=== PATIENT | female | born 1975 | race Caucasian/White ===

== ENCOUNTER → 2017-03-27 14:28 | Outpatient (CLI) | payer BC, SELFPAY ==
[2017-03-27 16:08] LABS: Absolute Lymphocyte Count 1.96 X10^3/ul (0.83-4.51); Absolute Neutrophil Count 4.2 X10^3/uL (2.0-7.7); Basophil# 0.03 X10^3/uL; Basophil% 0.4 % (0-1); Eosinophil# 0.05 X10^3/uL; Eosinophils% 0.7 % (0-5); Hematocrit 41.1 % (37-47); Hemoglobin 13.9 g/dl (12.0-15.0); Lymphocyte # 1.96 X10^3/ul (4.0); Lymphocyte % 29.3 % (19-41); Mean Corp Hgb Conc 33.8 g/gl (32-36); Mean Corpuscular Hgb 31.6 pg (27.0-32.0); Mean Corpuscular Volume 93.4 fL (81-99); Mean Platelet Vol. 11.4 fl (6.2-12.0); Neutrophil # 4.24 X10^3/uL (2.7-7.7); Neutrophil % 63.5 % (47-70); Platelet Count 308 K/mm3 (150-450); RBC Distribution Width CV 12.4 % (11.6-14.6); RBC Distribution Width SD 41.3 fl (35.1-43.9); White Blood Count 6.7 K/mm3 (4.4-11.0)
[2017-03-27 16:11] LABS: POSITIVE COUNT NO; POSITIVE DIFFERENTIAL NO; POSITIVE MORPHOLOGY NO
[2017-03-27 16:30] LABS: Color, Urine Yellow (Yellow); Glucose, Dipstick Normal (Normal); Ketone-Dipstick 5 mg/dl (Negative); Leukocyte Esterase-Dipstick 25 /ul (Negative); Nitrite-Dipstick Negative (Negative); Occult Blood-Urine 10 /ul (Negative); Protein-Dipstick 30 mg/dl (Negative); Specific Gravity, Urine 1.025 (1.002-1.030); Urine Bilirubin Dipstick Negative (Negative); Urine Clarity Sl. Cloudy (Clear); Urine Urobilinogen 4 mg/dl (Normal)
[2017-03-27 16:33] LABS: Erythrocyte Sedimentation Rate 2 mm/hr (0-20)
[2017-03-27 17:59] LABS: ALB/GLOB Ratio 1.3 RATIO (0.9-2.4); AST(SGOT) 10 U/L (15-37); Alanine Aminotransfer ALT/SGPT 17 U/L (13-56); Albumin, Serum 3.9 g/dL (3.2-5.0); Alkaline Phosphatase 63 U/L (45-117); Anion Gap 7 (5-15); BUN 12 mg/dL (7-18); BUN/Creat Ratio 14.5 RATIO (10-20); CRP < 2.90 mg/L (0.0-3.0); Calcium,Total 8.4 mg/dL (8.5-10.1); Chloride 104 mmol/L (98-107); Creatinine, Serum 0.83 mg/dL (0.55-1.02); EST Glomerular Filtration Rate 81 mL/min (>60); Est Glom Filt Rate - Afr Amer 98 mL/min (>60); Globulin 2.9 g/dL (2.2-4.2); Glucose 90 mg/dL (74-106); Protein, Total 6.8 g/dL (6.4-8.2); Sodium Level 140 mmol/L (136-145); Thyroid Stim Hormone (TSH) 0.99 uIU/mL (0.358-3.74)
== END ==
PROVIDERS: Family Provider Internal Medicine; PCP Internal Medicine; Visit Provider Internal Medicine
DX: R63.4 Abnormal weight loss (principal)
CPT/HCPCS: 36415; 80053; 81002; 84443; 85025; 85652; 86140

== ENCOUNTER → 2017-04-06 09:27 | Outpatient (CLI) | payer BC, SELFPAY ==
--- NOTE | 2017-04-06 09:31 | US_ITS ---
PROCEDURES: ULTRASOUND AORTA REASON FOR EXAM: Female, 42 years old. Palpable abdominal aorta. TECHNIQUE: Ultrasound evaluation of the aorta was performed with real-time and static olivarez-scale imaging. COMPARISON: None. FINDINGS: There is no elongation or tortuosity of the abdominal aorta. Aorta measures: Proximal 2.2; cm. Middle 1.3 cm. Distal 1.1 cm. Aorta measure transversely: Proximal 2.2 cm. Middle 1.3 cm. Distal 1.1 cm. Right iliac artery measures: 1.0 cm. Right iliac artery measure transversely: 0.9 cm. Left iliac artery measures: 1.0 cm. Left iliac artery measure transversely: 0.6 cm. There is no demonstrated aneurysm.. US/Aorta IMPRESSION: Normal abdominal aorta. Electronically Signed: Kristopher Cuadra MD at 14:35 EST Tel [phone], Service support ,
== END ==
PROVIDERS: Family Provider Internal Medicine; PCP Internal Medicine; Visit Provider Internal Medicine
DX: R09.89 Other specified symptoms and signs involving the circulatory and respiratory systems (principal)
CPT/HCPCS: 76775

== ENCOUNTER → 2018-02-18 12:56 | Outpatient (CLI) | payer BC, SELFPAY ==
--- NOTE | 2018-02-18 12:59 | ECHOD_ITS ---
Reason For Study: chest pain Procedure This was a 2D Doppler, Color Flow transthoracic echocardiogram. Exam performed in department. Left Ventricle Normal LV size. The estimated ejection fraction is 50 %. Normal diastology for age. No regional wall motion abnormalities noted. Right Ventricle Normal RV size. Normal systolic function. Atria Normal left atrium. Normal right atrium. Mitral Valve Normal mitral valve. Mild (1+) eccentric mitral valve insufficiency. Tricuspid Valve Normal tricuspid valve. Mild tricuspid valve insufficiency. Pulmonary artery systolic pressure is 30 mmHg. Aortic Valve Normal aortic valve. Trisinus/trileaflet aortic valve. Pulmonic Valve The pulmonic valve is not well visualized. Great Vessels Normal aortic root. The pulmonary artery is normal size. Normal inferior vena cava. Pericardium/Pleural No pericardial effusion. MMode/2D Measurements & Calculations LVIDd: 4.2 cm IVSd: 0.63 cm Ao root diam: 2.8 cm LVIDs: 3.3 cm LVPWd: 0.59 cm RVDd: 2.4 cm FS: 21.8 % LAV(MOD-bp): 31.1 ml LA A4 area: 10.2 cm2 LA dimension(2D): 2.7 cm LAV(MOD-bp) Indexed: 21.0 ml/m2 LAV(MOD-sp2): 38.0 ml LAV(MOD-sp4): 24.4 ml RA A4 area: 10.4 cm2 Doppler Measurements & Calculations MV E max tyrone: 80.7 cm/sec Lat Peak E' Tyrone: 13.3 cm/sec Med Peak E' Tyrone: 12.5 cm/sec MV A max tyrone: 74.5 cm/sec E/E' lat: 6.1 E/E' med: 6.5 MV E/A: 1.1 Ao V2 max: 146.9 cm/sec LV V1 max: 89.8 cm/sec PA V2 max: 81.9 cm/sec Ao max P.7 mmHg LV V1 max P.2 mmHg TR max tyrone: 252.2 cm/sec TR max P.5 mmHg Interpretation Summary Normal LV size. The estimated ejection fraction is 50 %. Normal diastology for age. Mild tricuspid valve insufficiency. Pulmonary artery systolic pressure is 30 mmHg. Ordering Physician: Skyla Cobb Referring Physician: Skyla Cobb Performed By: Zakia Hollis, ALISSA, RVT
== END ==
PROVIDERS: Family Provider Internal Medicine; PCP Internal Medicine; Referring Provider Internal Medicine; Visit Provider Internal Medicine
DX: R07.9 Chest pain, unspecified (principal)
CPT/HCPCS: 93306

== ENCOUNTER 2018-08-26 06:01 | Day surgery (SDC) | payer BC, SELFPAY ==
--- NOTE | 2018-08-16 16:45 | PCM.HP.BLA ---
History and Physical Date of Admission: 08/16/18 Althea Griffith Physician LICENSED CHEMICAL SPRAY TECHNICIAN H&P Signed Encounter Date: 08/16/2018 Expand All Collapse All Hide copied text Lily for details Teresa Sousa is a 43 year old female who presents abnormal uterine bleeding, endometrial polyp, uterine anomaly. Patient still with irregular bleeding. Patient is scheduled for hysteroscopy, D&C, polypectomy using the symphion device. Patient would like to proceed at this time. Patient denies any chest pain, shortness of breath, dizziness or other concerns at this time. ? PAST?MEDICAL?HISTORY PAST MEDICAL HISTORY Diagnosis Date ? 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 PAST?SURGICAL?HISTORY PAST SURGICAL HISTORY Procedure Laterality Date ? PAST SURGICAL HISTORY OF ? 2001 ? FOREIGN OBJECT REMOVED FROM THROAT ? FAMILY?HISTORY FAMILY HISTORY Problem Relation Age of Onset ? Pancreatic Cancer Father ? ? Breast Cancer Maternal Grandmother ? ? Heart Paternal Grandmother ? ? Heart Maternal Uncle ? ? Heart Maternal Uncle ? ? other (throat cancer) Paternal Uncle ? ? SOCIAL?HISTORY Social History Socioeconomic History Marital status: Spouse name: SHOSHANA Number of children: 2 Years of education: 12 Highest education level: Not on file Social Needs Financial resource strain: Not on file Food insecurity - worry: Not on file Food insecurity - inability: Not on file Transportation needs - medical: Not on file Transportation needs - non-medical: Not on file Occupational History Occupation: HOMEMAKER Tobacco Use Smoking status: Current Every Day Smoker Packs/day: 0.30 Years: 14.00 Pack years: 4.2 Types: Cigarettes Smokeless tobacco: Never Used Substance and Sexual Activity Alcohol use: Yes Comment: RARELY BUT NOT WHILE Drug use: No Sexual activity: Yes Partners: Male control/protection: Condom Other Topics Concerns: Not on file Social History Narrative Not on file ? CURRENT?MEDICATIONS ? Current Outpatient Medications: ibuprofen (ADVIL) 200 mg ORAL tablet Take 200 mg by mouth every 6 hours as needed. ibuprofen (MOTRIN) 600 mg tablet Take 1 tablet by mouth every 6 hours as needed for Pain. FOR PAIN. PNV w/o Calcium-Iron Fum-FA 29-1 mg ORAL Chew Take 1 tablet by mouth once daily. (Patient not taking: Reported on 06/07/2018 ) ? No current facility-administered medications for this visit. Allergies As of Date: 08/16/2018 Allergen Noted Reaction HYDROCODONE-ACETAMINOPHEN 05/03/2018 Intolerance KEFLEX [CEPHALEXIN] 10/01/2007 Swelling LEVAQUIN [LEVOFLOXACIN] 05/03/2018 Other: See Comments ? Fully Assessed 08/16/2018 ? ? REVIEW OF SYSTEMS Abdomen: no pain Bladder: no dysuria .. Expanded ROS: GENERAL: Negative for fever Allergies and current medication updated:Yes ? EXAM: BP 92/52 Ht 5' 6 (1.68m) Wt 101 lb (45.8kg) LMP 08/14/2018 BMI 16.31 kg/(m^2). ? GENERAL: pleasant, female in no apparent distress HEENT: Normocephalic and atraumatic NECK: full range of motion DERMATOLOGY: Normal, without lesions, non-icteric and non-hirsute CARDIAC: regular rate and rhythm CHEST: Clear to auscultation Normal inspiratory effort NEURO: alert and oriented x3,exam grossly non-focal EXTREMITIES: normal ? ASSESSMENT AND PLAN: Encounter Diagnosis ? ? ICD-10-CM ? 1. Abnormal uterine bleeding (AUB) N93.9 ? 2. 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 3. Endometrial polyp N84.0 ? ? 4. Pt has been counseled on risks/benefits and alternatives of surgery including but not limited to anesthesia, bleeding, infection, injury to pelvic structures including bowel, bladder, ureters and vessels. Pt wishes to proceed with surgery at this time. 5. Consent signed today. Motrin given for postoperative discomfort. ? Althea Holbrook MD ? ? ?
[2018-08-26] VITALS (7 sets, daily range): BP systolic 105–120; BP diastolic 70–74; PULSE 62–81; RESP 16; TEMP 36.5–36.7; O2SAT 97–100; BMI 16.1
--- NOTE | 2018-08-26 | EMB_PTH ---
PATIENT: GALINA FLORES LOC: [facility] [place] U#:[id number] AGE/SX: 43/F ROOM: RE08/26/[address]: Dr. Althea Holbrook, MDDOB: 1975 BED: DIS: 08/26/2018 SPEC #: [id number] RECD: 08/26/18 14:30 STATUS: DARÍO THEA #: [id number] ARSH: 08/26/18 00:[address]: Althea Holbrook DEPT: SURGICAL PATHOLOGY RECD BY: Eddie Ledezma ENTERED: 08/26/18 14:30 SP TYPE: ENDOM BX/C MARIA ESTHER DR: Dr. Skyla Cobb, Tissues: Endometrium, NOS Procedures: Surgery Specimen Level IV HEADER OPERATION: Hysteroscopy, D & C Symphion, polypectomy PRE-OP DIAGNOSIS: Abnormal uterine bleeding, endometrial polyp, uterine anomaly TISSUE SUBMITTED: Endometrial curettings MICROSCOPIC DIAGNOSIS Endometrial curettings: Disordered proliferative endometrium. Fragments of benign ecto- and endocervical epithelium. Fragments of myometrium. See comment. MECHELLE:gabby 08/27/18 COMMENT A few of the fragments have polypoid appearance and may represent fragments of polyp. Case has been reviewed in consultation with Dr. Tejeda who concurs with the above diagnosis. IDC:AM MICROSCOPIC DESCRIPTION Slides are reviewed. GROSS DESCRIPTION Received in fixative is one container labeled with the patient's name and designated endometrial curettings. The specimen consists of multiple fragments of hemorrhagic soft tissue that in aggregate measure 5 x 3 x 0.3 cm. The entire specimen is submitted in two cassettes. / MECHELLE:gabby 08/26/18 TC:5 CPT: 92910
[2018-08-26 06:33] LABS: Internal QC Validated? YES +Cl - CLEAR BKGD; Pregnancy, Urine Negative Negative
[2018-08-26 06:51] LABS: Hematocrit 41.8 % (37-47); Hemoglobin 14.2 g/dL (12.0-15.0); Mean Corpuscular Hgb 31.9 pg (27.0-32.0); Mean Corpuscular Volume 93.9 fL (81-99); Mean Platelet Vol. 10.8 fl (6.2-12.0); Platelet Count 264 K/mm3 (150-450); RBC Distribution Width CV 12.1 % (11.6-14.6); RBC Distribution Width SD 42.1 fl (35.1-43.9); Red Blood Count 4.45 M/mm3 (4.2-5.4)
--- NOTE | 2018-08-26 08:04 | OP.PCM_ITS ---
Report of Operation Date of Procedure: 08/26/18 Pre-Operative Diagnosis: AUB, endometrial polyp, uterine anomaly Post-Operative Diagnosis: same, didelphic uterus Surgery/Procedure Performed:: hysteroscopy, D&C, Polypectomy Description of Surgical Findings:: 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 There are 2 cervical is. The right uterus with moderate amount of endometrial tissue could not visualize the tubal ostia. Sounded to 8 cm. The left uterus with polypoid-like tissue. Moderate amount of endometrial tissue could not visualize the tubal ostia. This cavity also sounded to approximately 8 cm Type of Anesthesia:: MAC Specimen's removed: endometrial curettings Drains: none Estimated Blood Loss (mL): 5 Fluids Replaced: 700 Description of Procedure: Informed consent was obtained the patient was taken the operating room she was placed in supine position. She was given anesthesia. She was then placed in the [facility] where she was prepped and draped in the normal sterile fashion. bladder drained- 10cc urine. At this time the weighted speculum was placed in the posterior fornix of vagina. Single-tooth tenaculum was used to gently grasp the anterior lip the cervix. This time to cervical eyes were appreciated. On the patient's left cervical OS the uterine cavity was sounded to approximately 8 cm. On the right visit sounded to approximately 8 cm as well. Both were retroverted nature. Gentle dilatation was performed on both cervical eyes once adequate dilatation of the cervix was achieved the hysteroscope using normal saline as a distention medium was placed. abundant Endometrial tissue and polypoid-like tissue was appreciated on the left uterus. The resector device was used to remove the polypoid-like tissue. Next a sharp curettage was performed on both uterus small amount of tissue from the right. Large amount of endometrial polypoid-like tissue from the left was removed. Hysteroscope was reinserted cavity was intact and it appeared that the polypoid- like tissue was removed successfully. At This time hysteroscopy was complete. Endometrial curettings will be sent to pathology for evaluation. Gentle sweep performed is negative. Uncomplicated case anticipating normal postoperative course Grafts/Implants Used: none - Complications none - Admit VTE Documentation VTE Present on Admission: Yes VTE Mechan Device Prophylaxis: SCD's VTE Pharm Prophylaxis ordered?: No
--- NOTE | 2018-08-26 08:11 | DCINST_ITS ---
Discharge Diet: No Restrictions Discharge Activity: Return to Normal Activity, May Shower, May Take a Tub Bath - in 2 weeks. Allergies/Adverse Reactions: Allergies cephalexin [From Keflex] Allergy (Verified 08/19/18 11:22) Swelling hydrocodone Allergy (Verified 08/19/18 11:22) Other increased heart rate levofloxacin [From Levaquin] Allergy (Verified 08/19/18 11:22) Other increased heartrate, dizzy, double vision Medications to take at Discharge NK 08/19/18 Primary Care Physician: Skyla Cobb DO [Primary Care Provider] - Test Results: Test results from this visit will be discussed in further detail at your follow- up appointment, if applicable.
[2018-08-26] MEDS: oxyCODONE 5 MG Tablet PO (08:53)
[2018-08-26] MEDS: Acetaminophen 325 MG Tablet PO (08:53)
== END 2018-08-26 09:36 | disposition home or self-care (01) ==
LOC: SDC 06:03 → AC 06:04
PROVIDERS: Family Provider Internal Medicine; PCP Internal Medicine; Referring Provider Obstetrics & Gynecology; Visit Provider Obstetrics & Gynecology
PROC: 0UB98ZZ Excision of Uterus, Via Natural or Artificial Opening Endoscopic (ICD-10-PCS; CPT 58558; principal; 2018-08-26 07:15)
DX: N84.0 Polyp of corpus uteri (principal); N93.9 Abnormal uterine and vaginal bleeding, unspecified; Q51.20 Other doubling of uterus, unspecified; F17.210 Nicotine dependence, cigarettes, uncomplicated
CPT/HCPCS: 00952; 58558; 36415; 81025; 85027; 88305; J7120; J2405

== ENCOUNTER 2021-02-14 11:15 | Outpatient (CLI) | payer BC, SELFPAY | END 2021-02-14 23:59 | disposition short-term general hospital (02) | LOC: PSN 11:19 | PROVIDERS: PCP Internal Medicine; Referring Provider Internal Medicine; Visit Provider Internal Medicine | DX: R00.2 Palpitations (principal) | CPT/HCPCS: 93225; 93226 ==

== ENCOUNTER 2023-03-21 16:28 | Emergency (ER) | payer MEDICAID, SELFPAY ==
[2023-03-21 16:29] VITALS: BP 120/79; PULSE 94; RESP 18; TEMP 36.4; O2SAT 94
--- NOTE | 2023-03-21 16:35 | RAD_ITS ---
INDICATION: FALL EXAMINATION/TECHNIQUE: X-RAY - RIGHT XR Elbow Min 3 Views COMPARISON: No relevant prior comparison study available FINDINGS: SOFT TISSUES: No soft tissue swelling or gas. No radiopaque foreign body. BONES/JOINTS: There is elevation of the anterior fat pad. Acute nondisplaced fracture of the proximal radial head. Normal alignment. Preservation of the joint space. No sclerotic or destructive changes observed. RAD/Elbow min 3 Views IMPRESSION: Acute nondisplaced fracture of the proximal radial head. Electronically Signed: Antonio Dunbar MD at 16:51 EST ,
--- NOTE | 2023-03-21 18:14 | EX.ED.UPPERE ---
HPI <JUANI Mora - Last Filed: 03/21/23 18:21> History of Present Illness Chief Complaint: Upper Extremity Injury Narrative Narrative: Patient is a 48-year-old female with no significant medical history presents to the emerged department with complaints of right elbow pain. 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 She had pain in her elbow and his for evaluation. She denies any head or neck injury. PFSH <JUANI Mora - Last Filed: 03/21/23 18:21> PFS Medical History (Updated 03/21/23 @ 18:18 by JUANI Mora) Anemia Back pain Chest pain Fatigue Limb weakness SOB (shortness of breath) Home Medications azithromycin 250 mg tablet (Zithromax Z-Miller) See Rx Instructions PO .COMPLEX #6 tabs 04/22/19 [Rx Last Taken Unknown] oxycodone-acetaminophen 5 mg-325 mg tablet (Percocet) 1 tab PO Q8H PRN pain 3 days #10 tabs 03/21/23 [Rx Last Taken Unknown] Allergy/AdvReac Type Severity Reaction Status Date / Time cephalexin [From Keflex] Allergy Swelling Verified 03/21/23 16:29 hydrocodone Allergy Other Verified 03/21/23 16:29 levofloxacin [From Levaquin] Allergy Other Verified 03/21/23 16:29 Family History (Updated 04/22/19 @ 18:10 by Isabella Reyes) Other Aneurysm Breast cancer CVA (cerebral vascular accident) Cancer Heart disease Myocardial infarction Surgical History (Updated 09/07/21 @ 07:58 by Neyda Corona) plastic removed from throat Social History (Updated 04/22/19 @ 18:17 by Lachelle BELLO, PA) Smoking Status: Current every day smoker tobacco type: cigarettes alcohol intake: current alcohol intake frequency: other Alcohol type: beer ROS <JUANI Mora - Last Filed: 03/21/23 18:21> ROS ED ROS Narrative Constitutional: No fever, no chills. HEENT: No sore throat. No neck pain. No loss of vision. No rhinorrhea. Cardiovascular: No chest pain. No palpitations. No pedal edema. Respiratory: No cough, no shortness of breath. Abdominal: No abdominal pain. No nausea. No vomiting. Genitourinary: No dysuria. No hematuria. Musculoskeletal: No myalgias. No arthralgias. Positive for right elbow pain Neurologic: No headaches. No dizziness. No lightheadedness. Skin: No rash. No change in color. Psychiatric: No depression. No anxiety. EXAM <JUANI Mora - Last Filed: 03/21/23 18:21> Physical Exam Narrative Exam Narrative: Afebrile. Vital signs noted. HEENT: Normocephalic. Atraumatic. PERRL, EOMI. Neck soft and supple. No point tenderness or step off. Cardiovascular: Regular rate and rhythm. No murmurs, rubs, or gallops appreciated. Respiratory: No tachypnea. Lungs clear to auscultation bilaterally. Gastrointestinal: Abdomen soft, nontender, with normoactive bowel sounds. No rebound or guarding. Neurological: Awake. Alert. Nonfocal, nonlateralizing. Skin: No rash. Normal color. No pallor. Musculoskeletal: No pedal edema. Patient has some pain to the proximal radial area pain with supination and pronation. Flexing and extending does cause discomfort. No numbness or tingling, equal movement of the digits, +2 radial pulse. Const Vital Signs: 03/21/23 16:29 Temperature 97.5 F L Temperature Source Temporal Pulse Rate 94 Respiratory Rate 18 Blood Pressure 120/79 Blood Pressure Mean 92 Pulse Ox 94 Oxygen Delivery Method Room Air [facility] <JUANI Mora - Last Filed: 03/21/23 18:21> [facility] Radiography Diagnostic Testing: Clinical Impression(s) from Imaging Studies Elbow X-Ray 03/21/23 16:35 IMPRESSION: Acute nondisplaced fracture of the proximal radial head. Electronically Signed: Antonio Dunbar MD at 16:51 EST , Treatment and Re-Evaluation Narrative: Patient appears to be in no obvious distress, vital signs are stable. Presenting to the emergency department with complaints of right elbow pain after mechanical fall. Differential diagnosis include elbow strain, elbow contusion, elbow fracture. Patient will receive 3 views of the right elbow. The radiology exams ordered for this patient will be read by the emergency department attending. From these reads a plan of care will be put into place. Patient's x-ray showed acute nondisplaced fracture of the proximal radial head. Patiently placed in a sling, she will follow-up with orthopedics. Patient will be given a prescription for oxycodone, she will also be given instructions to take ibuprofen. She will ice. She verbally understands the importance of follow-up. She currently does not need anything for work. Patient stable for discharge. <Dr. Juan Sapp MD - Last Filed: 03/21/23 20:05> [facility] MDM Narrative Medical decision making narrative: I have personally performed a face to face assessment of the patient and have reviewed the DAVIS Note. I performed a substantive portion of the visit including all aspects of the following. My nair findings include: History: Patient tripped and fell on outstretched hand has right elbow pain. No other injury. Exam: She does have some tenderness in the lateral posterior aspect of the right elbow. She can move it but it is painful. No distal numbness tingling. No gross deformity. Medical Decision Making: My interpretation of her three-view x-ray of the right elbow shows a minimally displaced fracture of portion of the radial head. I think this can be treated with sling rest and early motion and repeat x-ray. Discharge Plan Triage Chief Complaint: Upper Extremity Injury ED Midlevel Provider: Senthil Canada ED Provider: Jaun Sapp Dx/Rx/DC Orders Clinical Impression: Elbow fracture, right, Fall Instructions: ED Elbow Fracture Prescriptions: New oxycodone-acetaminophen [Percocet] 5-325 mg tablet 1 tab PO Q8H PRN (Reason: pain) 3 Days Qty: 10 0RF No Action azithromycin [Zithromax Z-Miller] 250 mg tablet See Rx Instructions PO .COMPLEX Qty: 6 0RF Rx Instructions: take 500 mg today (day 1), then 250 mg for 4 days (days 2-5) PO Primary Care Provider: Skyla Cobb Referrals: Skyla Cobb DO [Primary Care Provider] - Zay Lentz DO [Med Staff - Active Staff] - Activity Restrictions/Additional Instructions: You must wear your sling, you need to follow-up with orthopedics Disposition Disposition: Home, Self Care Discharge Date/Time: 03/21/23 18:50
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
--- OUTSIDE RECORDS SUMMARY | 2023-03-21 18:49 | XMS RPT_ITS | CCD ---
Author Name Unknown Address [address] [place] [address] Organization [facility] Care Team Providers Care Car Park Attendant Name Role Phone Jordyn, Skyla Unavailable Gravius, Citlaly Unavailable Unavailable Slarb, Saundra Unavailable Unavailable Ciesa, Daniela Unavailable Yehuda, Leyda Unavailable Unavailable Messenger, Denise Unavailable Unavailable Unavailable Unavailable Jordyn, Skyla Unavailable Unavailable Jordyn, Skyla Unavailable Unavailable Jordyn, Skyla Unavailable Unavailable Jordyn, Skyla Unavailable Messenger, Denise Unavailable Unavailable Slarb, Saundra Unavailable Unavailable Gravius, Citlaly Unavailable Unavailable Yehuda, Leyda Unavailable Unavailable Unavailable Unavailable Sybil Treadwell Unavailable Unavailable Gravius, Citlaly Unavailable Unavailable Messenger, Denise Unavailable Unavailable Jordyn DO, Skyla Unavailable Meir INDUSTRIAL TRAINER, Sherrie Unavailable Unavailable Slarb INDUSTRIAL TRAINER, Saundra Unavailable Unavailable Gravius BUSINESS OBJECTS ARCHITECT, Citlaly Unavailable Unavailable Sybil Treadwell RN Unavailable Unavailable Yehuda, Leyda Unavailable Unavailable Messenger RN, Denise Unavailable Unavailable Unavailable Unavailable Yehuda AGUILARNMassimo Unavailable Unavailable Ciesa HYDRAULIC AND PLUMBING INSTALLER, Daniela Unavailable Allergies Allergy Classification Reported Allergen(s) Allergy Type Date of Onset Reaction(s) Facility (11 sources) acetaminophen / HYDROcodone; Translations: [Hydrocodone-Acet aminophen *ANALGESICS - OPIOID*] Drug Allergy [facility] Work Phone: (11 sources) cephalexin; Translations: [KEFLEX, 250MG (Oral Capsule)] Drug Allergy [facility] Work Phone: Medications Completed/Discontinued Medications Medication Drug Class(es) Dates Sig (Normalized) Sig (Original) azithromycin 250 mg oral tablet (11 sources) Macrolide Antimicrobial Start: 12-29-2008 End: 03-18-2010 take 1 tablet by mouth once daily ZITHROMAX Z-ROSY, 250MG (Oral Tablet) tad Tablet Daily for 0 days Quantity: 2 {Tablet} Refills: 0 Ordered: 18-Mar-2010 Denise Pires RN Start : 29-Dec-2008 End : 18-Mar-2010 Inactive Comments: TAD Problems Active Problems Problem Classification Problem Date Documented Da te Episodic/Chronic Abdominal pain (20 sources) Epigastric pain; Translations: [Epigastric pain] Resolved: 08-10-2019 12-25-2017 Episodic Allergic reactions (20 sources) Acute contact dermatitis; Translations: [Acute contact dermatitis] 12-25-2017 Episodic Anxiety disorders (20 sources) Acute stress disorder; Translations: [Anxiety] 12-25-2017 Chronic Past or Other Problems Problem Classification Problem Date Documented Da te Episodic/Chronic Immunizations and screening for infectious disease (19 sources) Need for prophylactic vaccination and inoculation against diphtheria-tetanus- pertussis, combined [DTP] [DTaP]; Translations: [Encounter for screening for respiratory tuberculosis] Resolved: 03-17-2014 03-17-2014 Episodic Inflammation, infection of eye (11 sources) Contact dermatitis of eyelid; Translations: [Contact dermatitis of right eyelid] Resolved: 08-10-2019 12-25-2017 Episodic Other nutritional; endocrine; and metabolic disorders (11 sources) Underweight; Translations: [SYMPTOMS CONCERNING NUTRITION, METABOLISM, AND DEVELOPMENT, ABNORMAL UNDERWEIGHT] Resolved: 07-26-2008 03-15-2014 Episodic Results Test Name Value Interpretation Reference Range Facil ity Vital Signs Date Time Vital Sign Value Performing Clinician Facility 03-13-2021 13:07-0500 Body height 165.1 cm Massimo Blackman LPN [facility]; [facility] Work Phone: 03-13-2021 13:07-0500 Body mass index (BMI) [Ratio] 17.18 kg/m2 Massimo Blackman LPN [facility]; [facility] Work Phone: 03-13-2021 13:07-0500 Body surface area Derived from formula 1.49 m2 Massimo Blackman LPN [facility]; [facility] Work Phone: 03-13-2021 13:07-0500 Body weight 46.83 kg Massimo Blackman LPN [facility]; [facility] Work Phone: 12-26-2020 13:40-0500 Body height 165.1 cm Sherrie Worley MANDY [facility]; [facility] Work Phone: 12-26-2020 13:40-0500 Body mass index (BMI) [Ratio] 17.18 kg/m2 Sherrie Worley MANDY [facility]; [facility] Work Phone: 12-26-2020 13:40-0500 Body surface area Derived from formula 1.49 m2 Sherrie Worley MANDY [facility]; [facility] Work Phone: 12-26-2020 13:40-0500 Body temperature 97.3 [degF] Sherrie Worley MANDY [facility]; [facility] Work Phone: Encounters Encounter Date Encounter Type Care Provider Facility Start: 03-13-2021 End: 03-13-2021 Office outpatient visit 15 minutes Skyla Jordyn DO Work Phone: [facility] Start: 03-13-2021 Review Skyla Fearo n DO Work Phone: [facility] Start: 03-08-2021 End: 03-08-2021 Office outpatient visit 5 minutes Skyla Jordyn DO Work Phone: [facility] Start: 02-05-2021 End: 02-06-2021 Office outpatient visit 5 minutes Skyla Jordyn DO Work Phone: [facility] Start: 01-24-2021 End: 01-24-2021 Office outpatient visit 5 minutes Skyla Jordyn DO Work Phone: [facility] Start: 01-08-2021 End: 01-09-2021 Office outpatient visit 5 minutes Skyla Jordyn DO Work Phone: [facility] Start: 12-26-2020 End: 12-26-2020 Office outpatient visit 40 minutes Skyla Jordyn DO Work Phone: [facility] Start: 12-14-2020 End: 12-14-2020 Lab Order Skyla Cobb DO Work Phone: [facility] Start: 08-10-2019 End: 08-10-2019 Office outpatient visit 10 minutes Skyla Cobb [facility] Start: 01-12-2018 End: 01-12-2018 Office outpatient visit 40 minutes Skyla Cobb [facility] Start: 01-08-2018 End: 01-08-2018 Phone Encounter Skyla [facility] Start: 12-30-2017 Patient encounter procedure Skyla Cobb [facility] Start: 12-25-2017 End: 12-25-2017 Office outpatient visit 25 minutes Skyla Cobb [facility] Start: 04-09-2017 End: 04-09-2017 Office outpatient visit 25 minutes Skyla Cobb [facility] Start: 03-27-2017 End: 03-27-2017 Office outpatient visit 40 minutes Skyla Cobb [facility] Start: 11-13-2016 End: 11-13-2016 Office outpatient visit 10 minutes Skyla Cobb [facility] Start: 08-18-2016 End: 08-18-2016 Office outpatient visit 15 minutes Skyla Cobb [facility] Start: 08-01-2016 End: 08-01-2016 Office outpatient visit 15 minutes Skyla Cobb [facility] Start: 12-31-2015 End: 12-31-2015 Office outpatient visit 15 minutes Skyla Cobb [facility] Start: 05-24-2015 End: 05-24-2015 Office outpatient visit 5 minutes Skyla Cobb [facility] Start: 05-24-2015 End: 05-24-2015 Office outpatient visit 25 minutes Skyla Cobb [facility] Start: 11-22-2014 End: 11-22-2014 Office outpatient visit 15 minutes Skyla Cobb [facility] Start: 06-12-2014 End: 06-12-2014 Phone Encounter Skyla Cobb [facility] Start: 06-12-2014 End: 06-12-2014 Office outpatient visit 15 minutes Skyla Cobb [facility] Start: 03-17-2014 End: 03-17-2014 Phone Encounter Skyla Cobb [facility] Start: 03-15-2014 End: 03-15-2014 Office outpatient visit 15 minutes Skyla Cobb [facility] Start: 03-20-2010 End: 03-20-2010 Annotation/Addendum Skyla Cobb [facility] Start: 03-19-2010 End: 03-19-2010 Patient encounter Skyla Cobb Sherry [facility] Start: 03-18-2010 End: 03-18-2010 Patient encounter Skyla Cobb [facility] Start: 12-28-2008 End: 12-28-2008 Patient encounter Skyla Cobb [facility] Start: 05-12-2007 End: 05-12-2007 Patient encounter Skyla Cobb [facility] Start: 03-31-2007 End: 04-02-2007 Patient encounter Skyla Cobb [facility] Start: 03-29-2007 End: 03-29-2007 Patient encounter Skyla Cobb [facility] Start: 03-30-2006 End: 03-30-2006 Office outpatient visit 10 minutes Skylajacque Cobb [facility] End: 03-17-2014 Physical examination [facility]; [facility] Work Phone: Procedures Date Procedure Procedure Detail Performing Clinician Start: 04-22-2019 End: 04-22-2019 Urgent Care Visit Report Comments: See Note; NOTES: [facility] [address] [place], [place] [id number] OFFICE VISIT Date of Service: 04/22/19 MR#: [id number] Acct: [id number] Name: TERESA SOUSA Rep #: [id number] : 1975 Provider: Lachelle Emery Age/Sex: 44/F Location: [facility] [place] Status: Signed Intake Vital Signs04/22/19 BMI 16.1 04/22/19 Height 5 ft 6 in 04/22/19 Weight: 99 lb 04/22/19 BMI 16.0 04/22/19 BP 108/64 04/22/19 Blood Pressure Location Lt brachial 04/22/19 Position Sitting 04/22/19 Respiration 15 04/22/19 Pulse 88 04/22/19 Temp 99.2 F H 04/22/19 Temp Source Temporal 04/22/19 Pulse Oximetry (%) 99 04/22/19 Oxygen Delivery Method room air Intake Visit Reasons: sore throat/cough Allergies cephalexin [From Keflex] Allergy (Verified 08/19/18 11:22) Swelling hydrocodone Allergy (Verified 08/19/18 11:22) Other levofloxacin [From Levaquin] Allergy (Verified 08/19/18 11:22) Other Medications NK 08/19/18 [History Confirmed 04/22/19] azithromycin 250 mg tablet See Rx Instructions PO .COMPLEX #6 tab 04/22/19 [Rx Confirmed 04/22/19] PFSH Medical History (Updated 04/22/19 @ 18:09 by Isabella Reyes) Anemia (Acute) Back pain (Acute) Chest pain (Acute) Fatigue (Acute) Limb weakness (Acute) SOB (shortness of breath) (Acute) Surgical History (Updated 04/22/19 @ 18:09 by Isabella Reyes) plastic removed from throat (Acute) Family History (Updated 04/22/19 @ 18:10 by Isabella Reyes) Other Aneurysm Breast cancer CVA (cerebral vascular accident) Cancer Heart disease Myocardial infarction Social History (Updated 04/22/19 @ 18:17 by EUGENIA Sheets) Smoking Status: Current every day smoker alcohol intake: current alcohol intake frequency: other Alcohol type: beer HPI HPI Details: TERESA SOUSA, is a 44 F who presents to the office today for An acute visit. Mom states that her children have been home sick with strep throat. pt sts that dtr last week had viral URI last week and today she has strep throat. She sts that last week she had a sore throat and it got better. Today it got worse and she also notes sore throat, cough, sinus drainage, fever. She has used OTC medications with some relief. ROS Const Constitutional: Positive for other (ROS is negative except what is described above.) Exam Const General: cooperative, healthy appearing, no acute distress Nutritional Appearance: average body habitus Orientation: alert, awake, oriented x3 HENMT Head: normal to inspection, atraumatic Ears: hearing grossly normal bilaterally Nose: external nose normal Face and sinus: normal facial exam Mouth: oral mucosae normal Eyes General: appearance normal, both eyes and all related structures Resp Effort AND Inspection: normal respiratory effort Auscultation: Right: Inspiratory Wheezes (RLB), Expiratory Wheezes (RLB) Cardio Palpation: normal PMI Rate: regular rate Rhythm: regular rhythm Heart Sounds: S1 normal, S2 normal, no gallops, no murmurs, no rubs GI Inspection: normal to inspection Auscultation: normal bowel sounds Palpation: soft, no hepatosplenomegaly, nontender Neuro General: alert, awake, oriented x3, CN's II-XI intact bilaterally Results POC Meagan Rapid Strep POC Meagan Rapid Strep Negative Last Edit by Isabella Reyes on 04/22/19 18:11 Assessment AND Plan Problems 1. Pneumonia J18.9 Plan Advised patient to complete course of antibiotics given. Advised patient on the importance of hydration. Recommended the use of znqg-pli-jkatgec support from Advil, Tylenol and trov-lok-xovfrpz cold medications to help alleviate symptoms. Did review maximum dosing on each of these medications to avoid accidental overdose of medications. Orders Orders: Medications New: azithromycin (Zithromax Z-Rosy) take 500 mg today (day 1), then 250 mg for 4 days (days 2-5 ) PO 6 tabs 0RF Coding Level of Care Code Off vis,est,level 4 Diagnoses Pneumonia J18.9 04/22/191816 <Electronically signed by Lachelle BELLO> Date Lachelle BELLO Cosigner Signature: Date (if applicable) CC: Skyla Cobb Start: 08-26-2018 End: 08-26-2018 Discharge Instruction Comments: See Note; NOTES: [facility] Medical Records Department [address] [place] [address] Instructions for Home/Discharge Instructions 08/26/18 0811 MR#: [id number] Acct: [id number] Name: TERESA SOUSA Rep #: [id number] : 1975 43 From: Cindi Lira MD PCP: Skyla Cobb DO Status: REG VAC Discharge Diet: No Restrictions Discharge Activity: Return to Normal Activity, May Shower, May Take a Tub Bath - in 2 weeks. Allergies/Adverse Reactions: Allergies cephalexin [From Keflex] Allergy (Verified 08/19/18 11:22) Swelling hydrocodone Allergy (Verified 08/19/18 11:22) Other increased heart rate levofloxacin [From Levaquin] Allergy (Verified 08/19/18 11:22) Other increased heartrate, dizzy, double vision Medications to take at Discharge NK 08/19/18 Primary Care Physician: Skyla Cobb DO [Primary Care Provider] - Test Results: Test results from this visit will be discussed in further detail at your follow-up appointment, if applicable. 08/26/18 0811 <Electronically signed by Cindi Lira MD> Date Cindi Lira MD CC: Skyla Cobb DO Signed Skyla Cobb Start: 08-26-2018 End: 08-26-2018 Operative Report Comments: See Note; NOTES: [facility] Medical Records Department [address] [place] [address] Operative Report 08/26/18 0804 MR#: [id number] Acct: [id number] Name: TERESA SOUSA Rep #: [id number] : 1975 43 From: Cindi Lira MD PCP: Skyla Cobb DO Status: [place] [facility] [place] [address] Report of Operation Date of Procedure: 08/26/18 Pre-Operative Diagnosis: AUB, endometrial polyp, uterine anomaly Post-Operative Diagnosis: same, didelphic uterus Surgery/Procedure Performed:: hysteroscopy, D AND C, Polypectomy Description of Surgical Findings:: 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 There are 2 cervical is. The right uterus with moderate amount of endometrial tissue could not visualize the tubal ostia. Sounded to 8 cm. The left uterus with polypoid-like tissue. Moderate amount of endometrial tissue could not visualize the tubal ostia. This cavity also sounded to approximately 8 cm Type of Anesthesia:: MAC Specimen's removed: endometrial curettings Drains: none Estimated Blood Loss (mL): 5 Fluids Replaced: 700 Description of Procedure: Informed consent was obtained the patient was taken the operating room she was placed in supine position. She was given anesthesia. She was then placed in the [facility] where she was prepped and draped in the normal sterile fashion. bladder drained- 10cc urine. At this time the weighted speculum was placed in the posterior fornix of vagina. Single-tooth tenaculum was used to gently grasp the anterior lip the cervix. This time to cervical eyes were appreciated. On the patient's left cervical OS the uterine cavity was sounded to approximately 8 cm. On the right visit sounded to approximately 8 cm as well. Both were retroverted nature. Gentle dilatation was performed on both cervical eyes once adequate dilatation of the cervix was achieved the hysteroscope using normal saline as a distention medium was placed. abundant Endometrial tissue and polypoid-like tissue was appreciated on the left uterus. The resector device was used to remove the polypoid-like tissue. Next a sharp curettage was performed on both uterus small amount of tissue from the right. Large amount of endometrial polypoid-like tissue from the left was removed. Hysteroscope was reinserted cavity was intact and it appeared that the polypoid-like tissue was removed successfully. At This time hysteroscopy was complete. Endometrial curettings will be sent to pathology for evaluation. Gentle sweep performed is negative. Uncomplicated case anticipating normal postoperative course Grafts/Implants Used: none - Complications none - Admit VTE Documentation VTE Present on Admission: Yes VTE Mechan Device Prophylaxis: SCD's VTE Pharm Prophylaxis ordered?: No 08/26/18 6382 <Electronically signed by Cindi Lira MD> Date Cindi Lira MD CC: Cindi Lira MD; Skyla Cobb DO Signed Skyla Cobb Start: 08-26-2018 End: 08-26-2018 History and Physical Exam Comments: See Note; NOTES: [facility] Medical Records Department [address] [place] [address] History and Physical 08/16/18 1645 MR#: [id number] Acct: [id number] Name: TERESA SOUSA Rep #: [id number] : 1975 43 From: Cindi Lira MD PCP: Skyla Cobb DO Status: REG SDC Y Location: [place] [address] ADDENDUM by Cindi Lira MD on 08/26/18 at 0721 Code Visit I have re-examined the patient. There are no clinical changes since date of exam. 08/26/18 0721 <Electronically signed by Cindi Lira MD> Date Cindi Lira MD cc: Cindi Lira MD; Skyla Cobb DO * Signed History and Physical Date of Admission: 08/16/18 Cindi Griffith Physician PALS NURSE H AND P Signed Encounter Date: 08/16/2018 Expand All Collapse All Hide copied text Hover for details Teresa Sousa is a 43 year old female who presents abnormal uterine bleeding, endometrial polyp, uterine anomaly. Patient still with irregular bleeding. Patient is scheduled for hysteroscopy, D AND C, polypectomy using the symphion device. Patient would like to proceed at this time. Patient denies any chest pain, shortness of breath, dizziness or other concerns at this time. PAST MEDICAL HISTORY PAST MEDICAL HISTORY Diagnosis Date PMH - PAST MEDICAL HISTORY OF didelphic uterus PAST SURGICAL HISTORY PAST SURGICAL HISTORY Procedure Laterality Date PAST SURGICAL HISTORY OF 2001 FOREIGN OBJECT REMOVED FROM THROAT FAMILY HISTORY FAMILY HISTORY Problem Relation Age of Onset Pancreatic Cancer Father Breast Cancer Maternal Grandmother Heart Paternal Grandmother Heart Maternal Uncle Heart Maternal Uncle other (throat cancer) Paternal Uncle SOCIAL HISTORY Social History Socioeconomic History Marital status: Spouse name: SHOSHANA Number of children: 2 Years of education: 12 Highest education level: Not on file Social Needs Financial resource strain: Not on file Food insecurity - worry: Not on file Food insecurity - inability: Not on file Transportation needs - medical: Not on file Transportation needs - non-medical: Not on file Occupational History Occupation: HOMEMAKER Tobacco Use Smoking status: Current Every Day Smoker Packs/day: 0.30 Years: 14.00 Pack years: 4.2 Types: Cigarettes Smokeless tobacco: Never Used Substance and Sexual Activity Alcohol use: Yes Comment: RARELY BUT NOT WHILE Drug use: No Sexual activity: Yes Partners: Male control/protection: Condom Other Topics Concerns: Not on file Social History Narrative Not on file CURRENT MEDICATIONS Current Outpatient Medications: ibuprofen (ADVIL) 200 mg ORAL tablet Take 200 mg by mouth every 6 hours as needed. ibuprofen (MOTRIN) 600 mg tablet Take 1 tablet by mouth every 6 hours as needed for Pain. FOR PAIN. PNV w/o Calcium-Iron Fum-FA 29-1 mg ORAL Chew Take 1 tablet by mouth once daily. (Patient not taking: Reported on 06/07/2018 ) No current facility-administered medications for this visit. Allergies As of Date: 08/16/2018 Allergen Noted Reaction HYDROCODONE-ACETAMINOPHEN 05/03/2018 Intolerance KEFLEX [CEPHALEXIN] 10/01/2007 Swelling LEVAQUIN [LEVOFLOXACIN] 05/03/2018 Other: See Comments Fully Assessed 08/16/2018 REVIEW OF SYSTEMS Abdomen: no pain Bladder: no dysuria .. Expanded ROS: GENERAL: Negative for fever Allergies and current medication updated:Yes EXAM: BP 92/52 GENERAL: pleasant, female in no apparent distress HEENT: Normocephalic and atraumatic NECK: full range of motion DERMATOLOGY: Normal, without lesions, non-icteric and non-hirsute CARDIAC: regular rate and rhythm CHEST: Clear to auscultation Normal inspiratory effort NEURO: alert and oriented x3,exam grossly non-focal EXTREMITIES: normal ASSESSMENT AND PLAN: Encounter Diagnosis ICD-10-CM 1. Abnormal uterine bleeding (AUB) N93.9 2. 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 Endometrial polyp N84.0 4. Pt has been counseled on risks/benefits and alternatives of surgery including but not limited to anesthesia, bleeding, infection, injury to pelvic structures including bowel, bladder, ureters and vessels. Pt wishes to proceed with surgery at this time. 5. Consent signed today. Motrin given for postoperative discomfort. Cindi Lira MD 08/16/181644 <Electronically signed by Cindi Lira MD> Date Cindi Lira MD Cosigner Signature: Date (if applicable) CC: Cindi Lira MD; Skyla Cobb DO Signed Skyla Cobb Start: 08-16-2018 End: 08-16-2018 History and Physical Exam Comments: See Note; NOTES: [facility] Medical Records Department [address] [place] [address] History and Physical 08/16/181644 MR#: [id number] Acct: [id number] Name: TERESA SOUSA Rep #: [id number] : 1975 43 From: Cindi Lira MD PCP: Skyla Cobb DO [place] [facility] [place] [place] [facility] [place] and Physical Date of Admission: 08/16/18 Cindi Griffith Physician PALS NURSE H AND P Signed Encounter Date: 08/16/2018 Expand All Collapse All Hide copied text Hover for details yvette Sousa is a 43 year old female who presents abnormal uterine bleeding, endometrial polyp, uterine anomaly. Patient still with irregular bleeding. Patient is scheduled for hysteroscopy, D AND C, polypectomy using the symphion device. Patient would like to proceed at this time. Patient denies any chest pain, shortness of breath, dizziness or other concerns at this time. PAST MEDICAL HISTORY PAST MEDICAL HISTORY Diagnosis Date PMH - PAST MEDICAL HISTORY OF didelphic uterus PAST SURGICAL HISTORY PAST SURGICAL HISTORY Procedure Laterality Date PAST SURGICAL HISTORY OF 2002 FOREIGN OBJECT REMOVED FROM THROAT FAMILY HISTORY FAMILY HISTORY Problem Relation Age of Onset Pancreatic Cancer Father Breast Cancer Maternal Grandmother Heart Paternal Grandmother Heart Maternal Uncle Heart Maternal Uncle other (throat cancer) Paternal Uncle SOCIAL HISTORY Social History Socioeconomic History Marital status: Spouse name: SHOSHANA Number of children: 2 Years of education: 12 Highest education level: Not on file Social Needs Financial resource strain: Not on file Food insecurity - worry: Not on file Food insecurity - inability: Not on file Transportation needs - medical: Not on file Transportation needs - non-medical: Not on file Occupational History Occupation: HOMEMAKER Tobacco Use Smoking status: Current Every Day Smoker Packs/day: 0.30 Years: 14.00 Pack years: 4.2 Types: Cigarettes Smokeless tobacco: Never Used Substance and Sexual Activity Alcohol use: Yes Comment: RARELY BUT NOT WHILE Drug use: No Sexual activity: Yes Partners: Male control/protection: Condom Other Topics Concerns: Not on file Social History Narrative Not on file CURRENT MEDICATIONS Current Outpatient Medications: ibuprofen (ADVIL) 200 mg ORAL tablet Take 200 mg by mouth every 6 hours as needed. ibuprofen (MOTRIN) 600 mg tablet Take 1 tablet by mouth every 6 hours as needed for Pain. FOR PAIN. PNV w/o Calcium-Iron Fum-FA 29-1 mg ORAL Chew Take 1 tablet by mouth once daily. (Patient not taking: Reported on 06/07/2018 ) No current facility-administered medications for this visit. Allergies As of Date: 08/16/2018 Allergen Noted Reaction HYDROCODONE-ACETAMINOPHEN 05/03/2018 Intolerance KEFLEX [CEPHALEXIN] 10/01/2007 Swelling LEVAQUIN [LEVOFLOXACIN] 05/03/2018 Other: See Comments Fully Assessed 08/16/2018 REVIEW OF SYSTEMS Abdomen: no pain Bladder: no dysuria .. Expanded ROS: GENERAL: Negative for fever Allergies and current medication updated:Yes EXAM: BP 92/52 GENERAL: pleasant, female in no apparent distress HEENT: Normocephalic and atraumatic NECK: full range of motion DERMATOLOGY: Normal, without lesions, non-icteric and non-hirsute CARDIAC: regular rate and rhythm CHEST: Clear to auscultation Normal inspiratory effort NEURO: alert and oriented x3,exam grossly non-focal EXTREMITIES: normal ASSESSMENT AND PLAN: Encounter Diagnosis ICD-10-CM 1. Abnormal uterine bleeding (AUB) N93.9 2. 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 Endometrial polyp N84.0 4. Pt has been counseled on risks/benefits and alternatives of surgery including but not limited to anesthesia, bleeding, infection, injury to pelvic structures including bowel, bladder, ureters and vessels. Pt wishes to proceed with surgery at this time. 5. Consent signed today. Motrin given for postoperative discomfort. Cindi Lira MD 08/16/18 1645 <Electronically signed by Cindi Lira MD> Date Cindi Lira MD Cosigner Signature: Date (if applicable) CC: Cindi Lira MD; Skyla Cobb DO Signed Skyla Cobb Start: 02-18-2018 End: 02-18-2018 Echocardiogram Complete Comments: See Note; NOTES: [facility] Cardiovascular Services [address] [id number] Echo Complete 02/18/18 1300 MR#: [id number] Acct: [id number] Name: TERESA SOUSA Rep #: [id number] : 1975 42 From: Thee Lowry MD Attending Dr: Skyla Cobb DO Status: REG CLI Ordering Dr: Skyla Cobb DO Date: 02/18/18 Location: [facility] Sex: F C Admitted: Reason For Study: chest pain Procedure This was a 2D Doppler, Color Flow transthoracic echocardiogram. Exam performed in department. Left Ventricle Normal LV size. The estimated ejection fraction is 50 %. Normal diastology for age. No regional wall motion abnormalities noted. Right Ventricle Normal RV size. Normal systolic function. Atria Normal left atrium. Normal right atrium. Mitral Valve Normal mitral valve. Mild (1+) eccentric mitral valve insufficiency. Tricuspid Valve Normal tricuspid valve. Mild tricuspid valve insufficiency. Pulmonary artery systolic pressure is 30 mmHg. Aortic Valve Normal aortic valve. Trisinus/trileaflet aortic valve. Pulmonic Valve The pulmonic valve is not well visualized. Great Vessels Normal aortic root. The pulmonary artery is normal size. Normal inferior vena cava. Pericardium/Pleural No pericardial effusion. MMode/2D Measurements AND Calculations LVIDd: 4.2 cm IVSd: 0.63 cm Ao root diam: 2.8 cm LVIDs: 3.3 cm LVPWd: 0.59 cm RVDd: 2.4 cm FS: 21.8 % LAV(MOD-bp): 31.1 ml LA A4 area: 10.2 cm2 LA dimension(2D): 2.7 cm LAV(MOD-bp) Indexed: 21.0 ml/m2 LAV(MOD-sp2): 38.0 ml LAV(MOD-sp4): 24.4 ml RA A4 area: 10.4 cm2 Doppler Measurements AND Calculations MV E max tyrone: 80.7 cm/sec Lat Peak E' Tyrone: 13.3 cm/sec Med Peak E' Tyrone: 12.5 cm/sec MV A max tyrone: 74.5 cm/sec E/E' lat: 6.1 E/E' med: 6.5 MV E/A: 1.1 Ao V2 max: 146.9 cm/sec LV V1 max: 89.8 cm/sec PA V2 max: 81.9 cm/sec Ao max P.7 mmHg LV V1 max P.2 mmHg TR max tyrone: 252.2 cm/sec TR max P.5 mmHg Interpretation Summary Normal LV size. The estimated ejection fraction is 50 %. Normal diastology for age. Mild tricuspid valve insufficiency. Pulmonary artery systolic pressure is 30 mmHg. Ordering Physician: Skyla Cobb Referring Physician: Skyla Cobb Performed By: Zakia Hollis, YAZMINCS, RVT 02/18/181704 Date Thee Lowry MD CC: Skyla Cobb DO Date Dictated: 02/18/18 1300 Date Transcribed: 02/18/181704 Dry Wall Finisher: Signed Skyla Cobb Work Phone: Start: 04-06-2017 End: 04-06-2017 Aorta Comments: See Note; NOTES: [facility] Imaging Services [address] [place] [place] [address] Aorta MR#: [id number] Acct: [id number] Name: TERESA SOUSA Rep #: [id number] : 1975 F 42 From: Kristopher Cuadra MD PCP: Skyla Cobb DO Status: REG CLI Study: Aorta Date of Exam: 04/06/17 Exam# [id number] Ordering Dr: Skyla Cobb DO PROCEDURES: ULTRASOUND AORTA REASON FOR EXAM: Female, 42 years old. Palpable abdominal aorta. TECHNIQUE: Ultrasound evaluation of the aorta was performed with real-time and static olivarez-scale imaging. COMPARISON: None. FINDINGS: There is no elongation or tortuosity of the abdominal aorta. Aorta measures: Proximal 2.2; cm. Middle 1.3 cm. Distal 1.1 cm. Aorta measure transversely: Proximal 2.2 cm. Middle 1.3 cm. Distal 1.1 cm. Right iliac artery measures: 1.0 cm. Right iliac artery measure transversely: 0.9 cm. Left iliac artery measures: 1.0 cm. Left iliac artery measure transversely: 0.6 cm. There is no demonstrated aneurysm.. US/Aorta IMPRESSION: Normal abdominal aorta. Electronically Signed: Kristopher Cuadra MD at 14:35 EST Tel [phone], Service support , CC: Skyla Cobb DO Dry Wall Finisher: Signed Skyla Cobb Work Phone: Start: 08-01-2016 End: 08-01-2016 L/S Spine Min 4 Views Comments: See Note; NOTES: [facility] Imaging Services [address] [facility] [place] [address] Verdana 4d L/S Spine Min 4 Views MR#: [id number] Acct: [id number] Name: TERESA SOUSA Rep #: [id number] : 1975 F 41 From: Kristopher Cuadra MD PCP: Skyla Cobb DO Status: REG CLI Study: L/S Spine Min 4 Views Date of Exam: 08/01/16 Exam# [id number] Ordering Dr: Lisbeth Felix STUDY: X-RAY - LUMBAR SPINE REASON FOR EXAM: Female, 41 years old. Low back pain and right lower extremity pain. TECHNIQUE: view(s) of the lumbar spine were obtained. COMPARISON: None FINDINGS: Normal lumbar lordosis. There is no substantial scoliosis. There is a normal alignment of the vertebrae. Normal vertebral bodies and endplates. Moderate degree of disc space narrowing at the L5-S1 level. The soft tissue structures are unremarkable. RAD/L/S Spine Min 4 Views IMPRESSION: Moderate degree of disc space narrowing at the L5-S1 level. Electronically Signed: Kristopher Cuadra MD at 15:20 EDT Tel [phone], Service support , CC: Lisbeth Felix; Skyla Cobb DO Dry Wall Finisher: Signed Lisbeth Felix Work Phone: Start: 05-24-2015 End: 05-24-2015 Ecg routine ecg w/least 12 lds w/i&r [MEASUREMENTS ANALYSIS] Date of Test: 05/24/2015 12:14:25; Heart Rate: 74; GA Interval: 146; QRS: 83; QT Interval: 376; Corrected QT Interval (QTc): 400; P Wave Melrose: 67; QRS Wave Melrose: 55; T Wave Melrose: 42; Blood Pressure: 98/64 [ECG DIAGNOSTIC STATEMENTS] Date of Test: 05/24/2015 12:14:25; Summary: Sinus Rhythm WITHIN NORMAL LIMITS Skyla Cobb Work Phone: Plan of Treatment Date Care Activity Detail Author Start: 03-13-2021 Procedure Education Eprescribed prescriptions (G8553) [facility] Work Phone: Start: 03-13-2021 Provider Instructions for Treatment Follow up if no improvement or if symptoms worsen [facility] Work Phone: Start: 12-26-2020 Cyanocobalamin vitamin b-12 VITAMIN B-12 (CYANOCOBALAMIN) (44770) [facility]; [facility] Work Phone: Start: 12-26-2020 25 hydroxy includes fractions if performed CALCIFEDIOL (90576) [facility]; [facility] Work Phone: Start: 12-26-2020 Procedure Education Eprescribed prescriptions (G8553) [facility]; [facility] Work Phone: Start: 12-26-2020 Provider Instructions for Treatment Reviewed Lab [facility]; [facility] Work Phone: Start: 08-10-2019 Procedure Education Eprescribed prescriptions (G8553) [facility] Work Phone: Start: 08-10-2019 Provider Instructions for Treatment Reviewed Diagnostic Tests [facility] Work Phone: Start: 01-12-2018 Provider Instructions for Treatment [facility] Work Phone: Start: 01-12-2018 Potassium [Moles/Vol] POTASSIUM SERUM (47189) [facility] Work Phone: Payers Date Payer Category Payer Unknown [id number] 2010 Private Health Insurance [id number] 2010 Unknown [id number] 2006 Unknown [id number] 1975 Unknown [id number] Unknown Social History Date Type Detail Facility Alcohol Use [facility] Work Phone: Progress note 08-14-2020 Note Date & Type Note Facility 08-14-2020 Note HNO ID: [id number] Author: Cindi Griffith MD Service: ? Author Type: Physician Type: Progress Notes Filed: 08/14/2020 11:16 AM Note Text: is a 45 year old who presents for an annual gynecologic exam with complaints of Intermittent pelvic pain and Abdominal Bloating. Going thru divorce- stressful. Menses: irregular 5-8 days of light flow.. Contraception: condoms HPV vaccine: No Last Pap: 05/05/2018 normal HPV: 05/08/2018 positive History of abnormal pap: No Last mammogram: never Sexually active: No History of STDS: HPV Patient concerns for STD exposure: No. Pain with intercourse: occasional - positional Postcoital bleeding: No Hot flashes: occasional Night sweats: No Exercise: active Diet: balanced OB History T2 L2 SAB0 TAB0 Ectopic0 Multiple0 Live Births2 PAST MEDICAL HISTORY Diagnosis Date - PMH - PAST MEDICAL HISTORY OF didelphic uterus PAST SURGICAL HISTORY Procedure Laterality Date - HYSTEROSCOPY W/BX ENDO/POLYP DANDC and polypectomy - PAST SURGICAL HISTORY OF 2001 FOREIGN OBJECT REMOVED FROM THROAT FAMILY HISTORY Problem Relation Age of Onset - Pancreatic Cancer Father - Breast Cancer Maternal Grandmother - Heart Paternal Grandmother - Heart Maternal Uncle - Heart Maternal Uncle - other (throat cancer) Paternal Uncle SOCIAL HISTORY Social History Tobacco Use - Smoking status: Current Every Day Smoker Packs/day: 0.30 Years: 14.00 Pack years: 4.20 Types: Cigarettes - Smokeless tobacco: Never Used Vaping Use - Vaping Use: Never used Substance Use Topics - Alcohol use: Yes Comment: RARELY BUT NOT WHILE - Drug use: No REVIEW OF SYSTEMS Abdomen: No abdominal pain, nausea, vomiting, diarrhea, or constipation. No bloating, early satiety, indigestion, or increased flatulence. Bladder: No dysuria, gross hematuria, urinary frequency, urinary urgency, or incontinence. Breast: No breast lumps, nipple d/c, overlying skin changes, redness or skin retraction. Allergies and current medication updated:Yes EXAM: BP 88/56 Ht 5' 6.5 (1.69m) Wt 97 lb (44.0kg) LMP 06/18/2020 BMI 15.42 kg/(m2). GENERAL: pleasant, female in no apparent distress HEENT: Normocephalic, atraumatic, mucus membranes moist and no lesions NECK: Supple, full range of motion, no adenopathy and thyroid normal DERMATOLOGY: Normal, without lesions, non-icteric and non-hirsute BREAST: soft, non-tender, symmetric, no dominant mass, normal nipple-areolar complex, no lymphadenopathy and no nipple discharge ABDOMEN: soft, non-tender and no masses PELVIC: external genitalia normal, normal Bartholin's glands, urethra, [place]el Dell's glands, no vulvar lesions, no cervical lesions, good vaginal support, physiologic discharge present, normal appearing perineal body and perianal region, CERVIX right and left appear normal BIMANUAL: uterus normal size, shape and consistency, no adnexal masses and non-tender RECTOVAGINAL: deferred. NEURO: alert and oriented x3,exam grossly non-focal EXTREMITIES: normal ASSESSMENT/PLAN: 1) Health maintenance: Pap done with HPV. Mammogram ordered. Nutrition, exercise and routine health maintenance exams reviewed. Calcium/Vitamin D supplementation information provided. 2) Contraception: condoms. Contraceptive options reviewed and information provided. 3) STD screening: Accepted STD check for Gonorrhea and Chlamydia. 4) Follow up one year or sooner as needed 5) pelvic us for pain / bloating Cindi Lira MD [facility] Clinical Note 08-14-2020 Note Date & Type Note Facility 08-14-2020 Note ADDITIONAL PROCEDURES PRESENT Specimen originated from [facility] Specimen #: [id number] Submitting Physician: CINDI LIRA MD SPECIMEN SUBMITTED A: RIGHT CERVICAL, SCREENING, FLUID FINAL DIAGNOSIS A. RIGHT CERVICAL, SCREENING, FLUID Unsatisfactory for evaluation. Limited cellularity. REFER TO [id number] This specimen has been analyzed by the ThinPrep Imaging System, an automated imaging and review system, which assists the laboratory in evaluating cells on ThinPrep Pap tests. Following automated imaging, selected hilliard from every slide are reviewed by a nipple threader. DENVER Mireles(ASCP) (Electronic Signature) ADDITIONAL PROCEDURE(S) HUMAN PAPILLOMA VIRUS Date Ordered: 08/15/2020 Date Reported: 08/16/2020 Procedure Results and Interpretation Negative for HPV DNA high risk type 16 by PCR. Negative for HPV DNA high risk type 18 by PCR. Negative for HPV DNA high risk types: 31,33,35,39,45,51,52,56,58,59,66,68 by PCR. This test was developed and its performance characteristics determined by [facility] [place] ([facility]). It has not been cleared or approved by the FDA. -[facility] is regulated under CLIA as qualified to perform high-complexity testing. This test is used for clinical purposes. It should not be regarded as investigational or for research. CLINICAL DATA HPV POS, HPV Testing: Yes, automatic HPV patients over 30 REFER TO [id number] Date of Last Menstrual Period: 06/18/2020 STAINS A: RIGHT CERVICAL, SCREENING, FLUID THIN PREP PERFORMANCE SPECIALIST Gary Dangelo M.D., [place] Date of Report: 08/16/2020 Date of Procedure: 08/14/2020 Date of Receipt: 08/15/2020 Submitted by: CINDI LIRA MD Location: [facility] Diagnostic interpretation performed at [facility], [address] [facility] [address]. CLIA Number: [id number] The Pap Smear is a screening test for cervical cancer. False negative results occur with all screening tests, emphasizing the need for rescreening at recommended intervals, and clinical correlation. [facility] Clinical Note 08-14-2020 Note Date & Type Note Facility 08-14-2020 Note ADDITIONAL PROCEDURES PRESENT Specimen originated from [facility] Specimen #: [id number] Submitting Physician: CINDI LIRA MD SPECIMEN SUBMITTED A: LEFT CERVICAL, SCREENING, FLUID FINAL DIAGNOSIS A. LEFT CERVICAL, SCREENING, FLUID Satisfactory for interpretation. Negative for intraepithelial lesion or malignancy. REFER TO [id number] This specimen has been analyzed by the ThinPrep Imaging System, an automated imaging and review system, which assists the laboratory in evaluating cells on ThinPrep Pap tests. Following automated imaging, selected hilliard from every slide are reviewed by a nipple threader. DENVER Mireles(ASCP) (Electronic Signature) ADDITIONAL PROCEDURE(S) HUMAN PAPILLOMA VIRUS Date Ordered: 08/15/2020 Date Reported: 08/17/2020 Procedure Results and Interpretation Negative for HPV DNA high risk type 16 by PCR. Negative for HPV DNA high risk type 18 by PCR. Negative for HPV DNA high risk types: 31,33,35,39,45,51,52,56,58,59,66,68 by PCR. This test was developed and its performance characteristics determined by [facility] [place] ([facility]). It has not been cleared or approved by the FDA. [facility] is regulated under CLIA as qualified to perform high-complexity testing. This test is used for clinical purposes. It should not be regarded as investigational or for research. CLINICAL DATA HPV POS, HPV Testing: Yes, automatic HPV patients over 30 REFER TO [id number] Date of Last Menstrual Period: 06/18/2020 STAINS A: LEFT CERVICAL, SCREENING, FLUID THIN PREP PERFORMANCE SPECIALIST Gary Dangelo M.D., [place] Date of Report: 08/16/2020 Date of Procedure: 08/14/2020 Date of Receipt: 08/15/2020 Submitted by: CINDI LIRA MD Location: [facility] Diagnostic interpretation performed at [facility], [address] [place] [address]. CLIA Number: [id number] The Pap Smear is a screening test for cervical cancer. False negative results occur with all screening tests, emphasizing the need for rescreening at recommended intervals, and clinical correlation. [facility] Progress note 08-14-2020 Note Date & Type Note Facility 08-14-2020 Note HNO ID: [id number] Author: Claire Parsons Ma Service: ? Author Type: ? Type: Progress Notes Filed: 08/14/2020 11:16 AM Note Text: Steward Dishwasher offered: Patient declines. [facility] Instructions Note Date & Type Note Facility [facility] Work Phone: Instructions Note Date & Type Note Facility [facility] Work Phone: Instructions Note Date & Type Note Facility [facility] Work Phone: Instructions Note Date & Type Note Facility [facility] Work Phone: Instructions Name Dates Details Non-smoker : How to access h ealth information online Indication:Non-smoker Non-smoker : How to access h ealth information online - Detail Indication:Non-smoker Non-smoker : Patient Instruc tions Indication:Non-smoker Diarrhea, unspecified type : How to access health information online Indication:Diarrhea, unspecified type Diarrhea, unspecified type : How to access health information online - Detail Indication:Diarrhea, unspecified type Diarrhea, unspecified type : Patient Instructions Indication:Diarrhea, unspecified type Body mass index (BMI) less t norris 16.5 : How to access health information online Indication:Body mass index (BMI) less than 16.5 Body mass index (BMI) less t norris 16.5 : How to access health information online - Detail Indication:Body mass index (BMI) less than 16.5 Body mass index (BMI) less t norris 16.5 : Patient Instructions Indication:Body mass index (BMI) less than 16.5 Moderate tobacco dependence : How to access health information online Indication:Moderate tobacco dependence Moderate tobacco dependence : How to access health information online - Detail Indication:Moderate tobacco dependence Moderate tobacco dependence : Patient Instructions Indication:Moderate tobacco dependence Acute maxillary sinusitis : How to access health information online Indication:Acute maxillary sinusitis Acute maxillary sinusitis : How to access health information online - Detail Indication:Acute maxillary sinusitis Acute maxillary sinusitis : Patient Instructions Indication:Acute maxillary sinusitis Chest pain : Patient Instruc tions Indication:Chest pain Name Dates Details Non-smoker : How to access h ealth information online Indication:Non-smoker Non-smoker : How to access h ealth information online - Detail Indication:Non-smoker Non-smoker : Patient Instruc tions Indication:Non-smoker Diarrhea, unspecified type : How to access health information online Indication:Diarrhea, unspecified type Diarrhea, unspecified type : How to access health information online - Detail Indication:Diarrhea, unspecified type Diarrhea, unspecified type : Patient Instructions Indication:Diarrhea, unspecified type Body mass index (BMI) less t norris 16.5 : How to access health information online Indication:Body mass index (BMI) less than 16.5 Body mass index (BMI) less t norris 16.5 : How to access health information online - Detail Indication:Body mass index (BMI) less than 16.5 Body mass index (BMI) less t norris 16.5 : Patient Instructions Indication:Body mass index (BMI) less than 16.5 Moderate tobacco dependence : How to access health information online Indication:Moderate tobacco dependence Moderate tobacco dependence : How to access health information online - Detail Indication:Moderate tobacco dependence Moderate tobacco dependence : Patient Instructions Indication:Moderate tobacco dependence Acute maxillary sinusitis : How to access health information online Indication:Acute maxillary sinusitis Acute maxillary sinusitis : How to access health information online - Detail Indication:Acute maxillary sinusitis Acute maxillary sinusitis : Patient Instructions Indication:Acute maxillary sinusitis Chest pain : Patient Instruc tions Indication:Chest pain Name Dates Details How to access health informa tion online Indication:Lymphadenopathy Start:12-Jan-2018 Instruction Type:Patient Education How to access health informa tion online - Detail Indication:Lymphadenopathy Start:12-Jan-2018 Instruction Type:Patient Education Patient Instructions Indication:Lymphadenopathy Start:12-Jan-2018 Instruction Type:Provider Instructions for Treatment How to access health informa tion online Indication:Non-smoker Start:25-Dec-2017 Instruction Type:Patient Education How to access health informa tion online - Detail Indication:Non-smoker Start:25-Dec-2017 Instruction Type:Patient Education Patient Instructions Indication:Non-smoker Start:25-Dec-2017 Instruction Type:Provider Instructions for Treatment How to access health informa tion online Indication:Diarrhea, unspecified type Start:09-Apr-2017 Instruction Type:Patient Education How to access health informa tion online - Detail Indication:Diarrhea, unspecified type Start:09-Apr-2017 Instruction Type:Patient Education Patient Instructions Indication:Diarrhea, unspecified type Start:09-Apr-2017 Instruction Type:Provider Instructions for Treatment How to access health informa tion online Indication:Diarrhea, unspecified type Start:27-Mar-2017 Instruction Type:Patient Education How to access health informa tion online - Detail Indication:Diarrhea, unspecified type Start:27-Mar-2017 Instruction Type:Patient Education Patient Instructions Indication:Diarrhea, unspecified type Start:27-Mar-2017 Instruction Type:Provider Instructions for Treatment How to access health informa tion online Indication:Body mass index (BMI) less than 16.5 Start:13-Nov-2016 Instruction Type:Patient Education How to access health informa tion online - Detail Indication:Body mass index (BMI) less than 16.5 Start:13-Nov-2016 Instruction Type:Patient Education Patient Instructions Indication:Body mass index (BMI) less than 16.5 Start:13-Nov-2016 Instruction Type:Provider Instructions for Treatment How to access health informa tion online Indication:Moderate tobacco dependence Start:18-Aug-2016 Instruction Type:Patient Education How to access health informa tion online - Detail Indication:Moderate tobacco dependence Start:18-Aug-2016 Instruction Type:Patient Education Patient Instructions Indication:Moderate tobacco dependence Start:18-Aug-2016 Instruction Type:Provider Instructions for Treatment How to access health informa tion online Indication:Acute maxillary sinusitis Start:22-Nov-2014 Instruction Type:Patient Education How to access health informa tion online - Detail Indication:Acute maxillary sinusitis Start:22-Nov-2014 Instruction Type:Patient Education Patient Instructions Indication:Acute maxillary sinusitis Start:22-Nov-2014 Instruction Type:Provider Instructions for Treatment Patient Instructions Indication:Chest pain Start:12-Jun-2014 Instruction Type:Provider Instructions for Treatment Name Dates Details How to access health informa tion online Indication:Lymphadenopathy Start:12-Jan-2018 Instruction Type:Patient Education How to access health informa tion online - Detail Indication:Lymphadenopathy Start:12-Jan-2018 Instruction Type:Patient Education Patient Instructions Indication:Lymphadenopathy Start:12-Jan-2018 Instruction Type:Provider Instructions for Treatment How to access health informa tion online Indication:Non-smoker Start:25-Dec-2017 Instruction Type:Patient Education How to access health informa tion online - Detail Indication:Non-smoker Start:25-Dec-2017 Instruction Type:Patient Education Patient Instructions Indication:Non-smoker Start:25-Dec-2017 Instruction Type:Provider Instructions for Treatment How to access health informa tion online Indication:Diarrhea, unspecified type Start:09-Apr-2017 Instruction Type:Patient Education How to access health informa tion online - Detail Indication:Diarrhea, unspecified type Start:09-Apr-2017 Instruction Type:Patient Education Patient Instructions Indication:Diarrhea, unspecified type Start:09-Apr-2017 Instruction Type:Provider Instructions for Treatment How to access health informa tion online Indication:Diarrhea, unspecified type Start:27-Mar-2017 Instruction Type:Patient Education How to access health informa tion online - Detail Indication:Diarrhea, unspecified type Start:27-Mar-2017 Instruction Type:Patient Education Patient Instructions Indication:Diarrhea, unspecified type Start:27-Mar-2017 Instruction Type:Provider Instructions for Treatment How to access health informa tion online Indication:Body mass index (BMI) less than 16.5 Start:13-Nov-2016 Instruction Type:Patient Education How to access health informa tion online - Detail Indication:Body mass index (BMI) less than 16.5 Start:13-Nov-2016 Instruction Type:Patient Education Patient Instructions Indication:Body mass index (BMI) less than 16.5 Start:13-Nov-2016 Instruction Type:Provider Instructions for Treatment How to access health informa tion online Indication:Moderate tobacco dependence Start:18-Aug-2016 Instruction Type:Patient Education How to access health informa tion online - Detail Indication:Moderate tobacco dependence Start:18-Aug-2016 Instruction Type:Patient Education Patient Instructions Indication:Moderate tobacco dependence Start:18-Aug-2016 Instruction Type:Provider Instructions for Treatment How to access health informa tion online Indication:Acute maxillary sinusitis Start:22-Nov-2014 Instruction Type:Patient Education How to access health informa tion online - Detail Indication:Acute maxillary sinusitis Start:22-Nov-2014 Instruction Type:Patient Education Patient Instructions Indication:Acute maxillary sinusitis Start:22-Nov-2014 Instruction Type:Provider Instructions for Treatment Patient Instructions Indication:Chest pain Start:12-Jun-2014 Instruction Type:Provider Instructions for Treatment Name Dates Details How to access health informa tion online Indication:BMI less than 19,adult Start:10-Aug-2019 Instruction Type:Patient Education How to access health informa tion online - Detail Indication:BMI less than 19,adult Start:10-Aug-2019 Instruction Type:Patient Education Patient Instructions Indication:BMI less than 19,adult Start:10-Aug-2019 Instruction Type:Provider Instructions for Treatment How to access health informa tion online Indication:Lymphadenopathy Start:12-Jan-2018 Instruction Type:Patient Education How to access health informa tion online - Detail Indication:Lymphadenopathy Start:12-Jan-2018 Instruction Type:Patient Education Patient Instructions Indication:Lymphadenopathy Start:12-Jan-2018 Instruction Type:Provider Instructions for Treatment How to access health informa tion online Indication:Non-smoker Start:25-Dec-2017 Instruction Type:Patient Education How to access health informa tion online - Detail Indication:Non-smoker Start:25-Dec-2017 Instruction Type:Patient Education Patient Instructions Indication:Non-smoker Start:25-Dec-2017 Instruction Type:Provider Instructions for Treatment How to access health informa tion online Indication:Diarrhea, unspecified type Start:09-Apr-2017 Instruction Type:Patient Education How to access health informa tion online - Detail Indication:Diarrhea, unspecified type Start:09-Apr-2017 Instruction Type:Patient Education Patient Instructions Indication:Diarrhea, unspecified type Start:09-Apr-2017 Instruction Type:Provider Instructions for Treatment How to access health informa tion online Indication:Diarrhea, unspecified type Start:27-Mar-2017 Instruction Type:Patient Education How to access health informa tion online - Detail Indication:Diarrhea, unspecified type Start:27-Mar-2017 Instruction Type:Patient Education Patient Instructions Indication:Diarrhea, unspecified type Start:27-Mar-2017 Instruction Type:Provider Instructions for Treatment How to access health informa tion online Indication:Body mass index (BMI) less than 16.5 Start:13-Nov-2016 Instruction Type:Patient Education How to access health informa tion online - Detail Indication:Body mass index (BMI) less than 16.5 Start:13-Nov-2016 Instruction Type:Patient Education Patient Instructions Indication:Body mass index (BMI) less than 16.5 Start:13-Nov-2016 Instruction Type:Provider Instructions for Treatment How to access health informa tion online Indication:Moderate tobacco dependence Start:18-Aug-2016 Instruction Type:Patient Education How to access health informa tion online - Detail Indication:Moderate tobacco dependence Start:18-Aug-2016 Instruction Type:Patient Education Patient Instructions Indication:Moderate tobacco dependence Start:18-Aug-2016 Instruction Type:Provider Instructions for Treatment How to access health informa tion online Indication:Acute maxillary sinusitis Start:22-Nov-2014 Instruction Type:Patient Education How to access health informa tion online - Detail Indication:Acute maxillary sinusitis Start:22-Nov-2014 Instruction Type:Patient Education Patient Instructions Indication:Acute maxillary sinusitis Start:22-Nov-2014 Instruction Type:Provider Instructions for Treatment Patient Instructions Indication:Chest pain Start:12-Jun-2014 Instruction Type:Provider Instructions for Treatment Summary Purpose Family History No Family History Records FoundNo Family History Records Found Advance Directives No Advanced Directives Records FoundNo Advanced Directives Records Found Additional Source Comments INFORMATION SOURCE (unrecogn ized section and content) DATE CREATED AUTHOR AUTHOR'S JUSTINO BASSETT 03/12/2021 [facility] FOR RECORDS PERTAINING TO PATIENTS WHO ARE OR HAVE BEEN ENROLLED IN A CHEMICAL DEPENDENCY/SUBSTANCEABUSE PROGRAM, SOME INFORMATION MAY BE OMITTED. This clinical summary was aggregated from multiple sources. Caution should be exercised in using it in the provision of clinical care. This summary normalizes information from multiple sources, and as a consequence, information in this document may materially change the coding, format and clinical context of patient data. In addition, data may be omitted in some cases. CLINICAL DECISIONS SHOULD BE BASED ON THE PRIMARY CLINICAL RECORDS. [email or web address] provides no warranty or guarantee of the accuracy or completeness of information in this document.
== END 2023-03-21 18:50 | disposition home or self-care (01) ==
LOC: ED 18:46
PROVIDERS: Emergency Provider Emergency Medicine; PCP Internal Medicine; Visit Provider Emergency Medicine
DX: S52.121A Displaced fracture of head of right radius, initial encounter for closed fracture (principal); W01.10XA Fall on same level from slipping, tripping and stumbling with subsequent striking against unspecified object, initial encounter; Y92.89 Other specified places as the place of occurrence of the external cause; F17.210 Nicotine dependence, cigarettes, uncomplicated
CPT/HCPCS: 73080; 99283